=== PATIENT | male | born 1945 | race Caucasian/White ===

== ENCOUNTER 2019-09-17 13:12 | Inpatient (IN) | payer OTHER ==
[~2019-09-17] VITALS: Ht 182.9 cm; Wt 113.4 kg
[~2019-09-17 13:12] MED LIST: FLEXERIL PO; MOBIC7.5 MG PO; OXYCODONE HCL E30 MG PO
[2019-09-17 13:19] VITALS: BP 177/99
[2019-09-17 13:35] LABS: ABSOLUTE NEUTROPHILS 5.7 thou/uL (1.4-8.2); BASOPHILS 0.2 % (0.0-2.0); EOSINOPHILS 2.7 % (0.0-3.0); HEMATOCRIT 43.7 % (42.0-52.0); HEMOGLOBIN 14.5 gm/dL (14.0-18.0); LYMPHOCYTES 23.5 % (24.0-44.0); MCHC 33.2 g/dL (28.0-37.0); MCV 84.2 fL (80.0-100.0); MONOCYTES 8.7 % (1.0-8.0); PLATELET COUNT 209 thou/uL (150-400); POLYS 64.9 % (36.0-66.0); RBC 5.19 mil/uL (4.50-6.00); RDW 13.6 % (10.5-14.5); WBC 8.7 thou/uL (4.0-11.0)
[2019-09-17 13:40] LABS: ANION GAP 6 mmol/L (7-16); BUN 23 mg/dL (7-18); CHLORIDE 103 mmol/L (98-107); CO2 30 mmol/L (21-32); CREATININE 1.4 mg/dL (0.7-1.3); GLUCOSE 124 mg/dL (74-106); POTASSIUM 4.1 mmol/L (3.5-5.1); SODIUM 139 mmol/L (136-145)
[2019-09-17 13:50] LABS: TROPONIN-I <0.06 ng/mL (<0.06)
[2019-09-17 15:51] VITALS: BP 126/80
[2019-09-17 16:45] LABS: AMP/METHAMP Negative (Negative); BARBITURATES Negative (Negative); BENZODIAZEPINES Negative (Negative); COCAINE Negative (Negative); METHADONE Negative (Negative); OPIATES POSITIVE (Negative); PCP Negative (Negative)
--- NOTE | 2019-09-17 17:08 | EKG ---
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 Instrument: cu : 1945 Requested By: Bryon Person Order Number: [id number] MD: Evan Ayala Measurements Intervals [place] Rate: 77 P: 21 KS: 237 QRS: -77 QRSD: 181 T: 44 QT: 452 QTc: 512 Interpretive Statements Sinus rhythm Ventricular premature complex Prolonged [place] interval Probable left atrial enlargement RBBB and LAFB No previous ECG available for comparison Electronically Signed On 09-17-2019 17:08:13 [employer] 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
[2019-09-17 17:09] VITALS: BP 157/79
[2019-09-17 17:15] VITALS: BP 157/79
[2019-09-17 20:16] VITALS: BP 128/67
[2019-09-18 00:19] VITALS: BP 131/79
--- NOTE | 2019-09-18 03:03 | NUR ---
ASSUMED PT CARE AROUND 1899. A&OX4. C/O HEADACHE AND CHRONIC BACK PAIN. TYLENOL GIVEN WITH PARTIAL RELIEF. C/O DIFFICULTY SLEEPING. 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 MELATONIN GIVEN PER ORDER. PT RESTING QUIETLY AT THIS TIME. VSS. AFEBRILE. IVF INFUSING ORDERED. PROGRESSING TOWARD POC GOALS. WILL CONTINUE TO MONITOR FURTHER.
[2019-09-18 04:13] VITALS: BP 114/64
[2019-09-18 07:23] VITALS: BP 134/69
[2019-09-18 11:25] VITALS: BP 144/81
[2019-09-18] MEDS ORDERED: ACETAMINOPHEN325 M1 PO (12:02)
[2019-09-18] MEDS ORDERED: MOBIC7.5 MG PO (12:02)
[2019-09-18] MEDS ORDERED: OXYCODONE HCL E30 MG PO (12:02)
[2019-09-18 13:36] VITALS: BP 144/81
--- NOTE | 2019-09-18 14:29 | NUR ---
INITIAL ASSESSMENT/DISCHARGE SUMMARY: Received consult for discharge planning. ANA reviewed chart and spoke with nursing and attending physician. Pt was admitted from home due to accidental overdose. Pt became unsresponsive at home. Pt's on provided CPR. Pt had purchased narcotics from an individual seller and had an immediate reaction after taking the pill. Pt is medically stable for discharge home today. ANA met with pt at bedside. Introduced role of SW. Pt reports he lives at home. Prior to admission, pt was independent with ADLs. No hx of HH services. Pt's son is supportive and involved in his care. Pt states he used to go to the [facility] for primary care, but was cut off from them and is unable to seek services or fill prescriptions at the [facility]. Lengthy discussion with pt regarding research he has completed over the years regarding financial matters of the [place]. ANA provided info to pt for primary care groups and pain mgmt services at [facility]. ANA offered to schedule pt an appt. Pt declines offer and states he will call to make an appt. Orders written for HH services. ANA discussed with pt. Pt declines offer and states he does not want HH. Pt's family to provide transportation home. No additional SW needs identified at this time, but is available to assist should needs arise.
--- NOTE | 2019-09-18 17:24 | NUR ---
PROGRESSING TOWARDS POC GOALS. DC TO HOME NOW.
== END 2019-09-18 17:26 | disposition home or self-care (01) | DRG 917 ==
LOC: ER 13:12 → EROBS 14:30 → 3W 14:30
PROVIDERS: Emergency Medicine; ADMIT Internal Medicine
DX: T40.601A Poisoning by unspecified narcotics, accidental (unintentional), initial encounter (principal); G92 Toxic encephalopathy; I10 Essential (primary) hypertension; E66.9 Obesity, unspecified; G89.4 Chronic pain syndrome; Z68.33 Body mass index [BMI] 33.0-33.9, adult; Y92.89 Other specified places as the place of occurrence of the external cause
CPT/HCPCS: 10879